=== PATIENT | male | born 1995 | race Caucasian/White ===

== ENCOUNTER 2018-04-29 11:11 | Inpatient (IN) | payer BC ==
[~2018-04-29] VITALS: Ht 172.7 cm; Wt 85.7 kg
[2018-04-29] MEDS ORDERED: LORazepam 2 MG/ML, 1ML IVPush STA (11:36)
[2018-04-29] MEDS ORDERED: LORazepam 2 MG/ML, 1ML ONE (11:38)
[2018-04-29] MEDS ORDERED: SODIUM CHLORIDE FLUSH 10ML SYR IVF ONE (12:00)
[2018-04-29 12:21] LABS: BASOPHILS # (AUTO) 0.04 x10^3/uL (0-0.1); BASOPHILS % (AUTO) 1 % (0-1); EOSINOPHILS # (AUTO) 0.04 x10^3/uL (0-0.4); EOSINOPHILS % (AUTO) 1 % (1-7); LYMPHOCYTES # (AUTO) 1.08 x10^3/uL (1-3.4); LYMPHOCYTES % (AUTO) 16 % (22-44); MD NO; MEAN CORPUSCULAR HEMOGLOBIN 30.1 pg (27.5-34.5); MEAN CORPUSCULAR HGB CONC 34.3 g/dL (33.2-36.2); MEAN CORPUSCULAR VOLUME 87.6 fL (81-97); MEAN PLATELET VOLUME 8.4 fL (7.4-10.4); MONOCYTES # (AUTO) 0.44 x10^3/uL (0.2-0.8); MONOCYTES % (AUTO) 7 % (2-9); NEUTROPHILS # (AUTO) 5.02 x10^3/uL (1.8-6.8); NEUTROPHILS % (AUTO) 76 % (42-75); PLATELET COUNT 180 x10^3/uL (130-400); RED BLOOD COUNT 5.22 x10^6/uL (4.38-5.82); RED CELL DISTRIBUTION WIDTH 11.9 % (9.4-14.8)
[2018-04-29 12:21] LABS: AMPHETAMINE SCREEN, URINE Negative (Negative); BARBITURATE SCREEN, URINE Negative (Negative); BENZODIAZEPINE SCREEN, URINE Negative (Negative); CANNABINOID SCREEN, URINE Negative (Negative); COCAINE SCREEN, URINE Negative (Negative); METHADONE SCREEN, URINE Negative (Negative); OPIATE SCREEN, URINE Negative (Negative)
[2018-04-29 12:25] LABS: ALBUMIN 4.1 g/dL (3.4-5.0); ANION GAP 10 mmol/L (5-15); CALCIUM 8.7 mg/dL (8.5-10.1); CHLORIDE 110 mmol/L (98-107); CREATININE 0.95 mg/dL (0.7-1.3)
[2018-04-29] MEDS ORDERED: LEVETIRACETAM 500 MG in SODIUM CHLORIDE 0.9% 100 ML IV ONE (16:30)
[2018-04-29] MEDS ORDERED: ONDANSETRON 2MG/ML, 2ML IVPush PRN (17:00)
[2018-04-29] MEDS ORDERED: ACETAMINOPHEN 325 MG TABLET PO PRN (17:00)
[2018-04-29] MEDS ORDERED: ONDANSETRON ODT 4 MG PO PRN (17:00)
[2018-04-29] MEDS ORDERED: BISACODYL 10 MG SUPP PR PRN (17:00)
[2018-04-29] MEDS ORDERED: POLYETHYLENE GLYCOL 17 GM PACKET PO PRN (17:00)
[2018-04-29 17:20] LABS: SALICYLATE LEVEL < 1.7 mg/dL (2.8-20.0)
[2018-04-29] MEDS ORDERED: GADOBUTROL 7.5 MMOL/7.5 ML PFS ONE (17:25)
[2018-04-29 17:45] LABS: ACETAMINOPHEN < 2 mcg/mL (10-30)
[2018-04-29] MEDS: LACTATED RINGERS 1,000 ML IV SCH (18:18)
[2018-04-29] MEDS ORDERED: LORazepam 2 MG/ML, 1ML IVPush PRN (19:30)
[2018-04-29] MEDS: LEVETIRACETAM 500 MG TABLET PO SCH (19:42)
[2018-04-29 20:00] VITALS: BP 120/76
[2018-04-29 20:01] VITALS: BP 124/69
[2018-04-29 20:03] VITALS: BP 119/77
[2018-04-29 20:05] VITALS: BP 119/77
[2018-04-30] VITALS (11 sets, daily range): BP systolic 106–139; BP diastolic 62–83
[2018-04-30] MEDS: LACTATED RINGERS 1,000 ML IV SCH (04:00)
[2018-04-30 05:30] LABS: ALBUMIN 3.5 g/dL (3.4-5.0); ANION GAP 5 mmol/L (5-15); CALCIUM 8.3 mg/dL (8.5-10.1); CHLORIDE 110 mmol/L (98-107)
[2018-04-30 05:34] LABS: ALANINE AMINOTRANSFERASE 41 U/L (12-78); ALKALINE PHOSPHATASE 58 U/L (45-117); BILIRUBIN,TOTAL 0.7 mg/dL (0.2-1.0); CREATININE 0.93 mg/dL (0.7-1.3); TOTAL PROTEIN 6.1 g/dL (6.4-8.2)
[2018-04-30 06:05] LABS: BASOPHILS # (AUTO) 0.04 x10^3/uL (0-0.1); BASOPHILS % (AUTO) 1 % (0-1); EOSINOPHILS # (AUTO) 0.12 x10^3/uL (0-0.4); EOSINOPHILS % (AUTO) 2 % (1-7); LYMPHOCYTES # (AUTO) 2.51 x10^3/uL (1-3.4); LYMPHOCYTES % (AUTO) 31 % (22-44); MD NO; MEAN CORPUSCULAR HEMOGLOBIN 29.4 pg (27.5-34.5); MEAN CORPUSCULAR HGB CONC 33.5 g/dL (33.2-36.2); MEAN CORPUSCULAR VOLUME 87.8 fL (81-97); MEAN PLATELET VOLUME 8.2 fL (7.4-10.4); MONOCYTES # (AUTO) 0.81 x10^3/uL (0.2-0.8); MONOCYTES % (AUTO) 10 % (2-9); NEUTROPHILS # (AUTO) 4.76 x10^3/uL (1.8-6.8); NEUTROPHILS % (AUTO) 58 % (42-75); PLATELET COUNT 190 x10^3/uL (130-400); RED BLOOD COUNT 4.78 x10^6/uL (4.38-5.82); RED CELL DISTRIBUTION WIDTH 12.1 % (9.4-14.8)
[2018-04-30 06:17] LABS: MICROSCOPIC NOT IND
[2018-04-30 06:19] LABS: CULTURE INDICATED? NO
[2018-04-30] MEDS: SENNA/DOCUSATE TABLET PO SCH (09:00)
[2018-04-30] MEDS: LEVETIRACETAM 500 MG TABLET PO SCH ×3 (11:21→21:44)
[2018-05-01 01:41] VITALS: BP 114/76
[2018-05-01] MEDS: LEVETIRACETAM 500 MG TABLET PO SCH ×2 (08:20→09:43)
[2018-05-01] MEDS: SENNA/DOCUSATE TABLET PO SCH (08:21)
[2018-05-01] MEDS ORDERED: LEVE500T53 PO (10:50)
== END 2018-05-01 11:00 | disposition home or self-care (01) | DRG 101 ==
LOC: ED 12:46 → EDIP 16:17 → 4EST 17:45
PROVIDERS: ADMIT Internal Medicine; ATTEND Internal Medicine
PROC: 4A00X4Z Measurement of Central Nervous Electrical Activity, External Approach (ICD-10-PCS; principal; 2018-04-30)
DX: G40.89 Other seizures (principal); E87.2 Acidosis; K59.00 Constipation, unspecified; Z79.899 Other long term (current) drug therapy
CPT/HCPCS: 36415; 70450; 70553; 80048; 80053; 80307; 80329; 81003; 82040; 82607; 83735; 84443; 85025; 93005; 95819; 96374; A9585; J1953; G0480; J2060; J7120